=== PATIENT | male | born 1965 | race Caucasian/White ===

== ENCOUNTER 2018-03-12 23:15 | Emergency (ER) | payer OTHER ==
[2018-03-12] MEDS ORDERED: LIDOCAINE 1%/EPINEPHRINE INJ 20 ML VIAL INJ ONE (23:50)
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
[2018-03-13 02:29] VITALS: BP 121/72
== END 2018-03-13 02:30 | disposition home or self-care (01) ==
LOC: ER 23:15
PROC: 0HQ1XZZ Repair Face Skin, External Approach (ICD-10-PCS; principal; 2018-03-12)
PROC: 0HQ0XZZ Repair Scalp Skin, External Approach (ICD-10-PCS; 2018-03-12)
DX: S01.81XA Laceration without foreign body of other part of head, initial encounter (principal); S01.01XA Laceration without foreign body of scalp, initial encounter; S80.212A Abrasion, left knee, initial encounter; S70.01XA Contusion of right hip, initial encounter; M25.551 Pain in right hip; V87.7XXA Person injured in collision between other specified motor vehicles (traffic), initial encounter
CPT/HCPCS: 99283; 12013; 12001; J3490

== ENCOUNTER 2018-03-20 15:37 | Emergency (ER) | payer OTHER ==
[2018-03-20 15:45] VITALS: BP 122/77
--- NOTE | 2018-03-20 16:11 | ER Document Report ---
HPI - HPI Pain Level: Denies Notes: Patient is a 52-year-old male who presents with chief complaint of request for suture removal. Patient presents as 5 sutures to his forehead. Patient states they have been there for 7 days. Patient denies any other complaints. Past Medical History - General Information source: Patient - Social History Smoking Status: Never Smoker Frequency of alcohol use: None Drug Abuse: None Family History: None Patient has suicidal ideation: No Patient has homicidal ideation: No - Medical History Medical History: Negative Renal/ Medical History: Denies: Hx Peritoneal Dialysis Past Surgical History: Reports: Hx Appendectomy - Immunizations Immunizations up to date: Yes Vertical Provider Document - CONSTITUTIONAL Notes: PHYSICAL EXAMINATION: GENERAL: Well-appearing, well-nourished and in no acute distress. HEAD: Atraumatic, normocephalic. EYES: Pupils equal round extraocular movements intact, conjunctiva are normal. ENT: Nares patent NECK: Normal range of motion LUNGS: No respiratory distress Musculoskeletal: Normal range of motion NEUROLOGICAL: Normal speech, normal gait. PSYCH: Normal mood, normal affect. SKIN: Warm, Dry, normal turgor, no rashes or lesions noted. Well-healed laceration to patient's forehead near his hairline above his right eye. 5 sutures appear to be in place. - INFECTION CONTROL TRAVEL OUTSIDE OF THE [place] IN LAST 30 DAYS: No Course - Re-evaluation Re-evalutation: Sutures removed without difficulty. Patient discharged home in stable condition. - Vital Signs Vital signs: Temp Pulse Resp BP Pulse Ox 97.8 F 86 122/77 99 03/20/18 15:42 03/20/18 15:42 03/20/18 15:42 03/20/18 15:42 Discharge - Discharge Clinical Impression: Encounter for removal of sutures Condition: Stable Disposition: HOME, SELF-CARE Additional Instructions: Your laceration has healed well, the sutures were removed today. You can continue to put a thin layer of bacitracin ointment to the area twice daily. Return to the emergency department if you develop increasing redness, swelling, pain, foul-smelling drainage or red streaking from the area.
== END 2018-03-20 16:20 | disposition home or self-care (01) ==
LOC: ER 15:37
DX: S01.81XD Laceration without foreign body of other part of head, subsequent encounter (principal); X58.XXXD Exposure to other specified factors, subsequent encounter